=== PATIENT | male | born 1975 | race Caucasian/White ===

== ENCOUNTER 2021-12-07 07:43 | Outpatient (CLI) | payer OTHER, SELFPAY ==
[2021-12-07] MEDS: iohexol 350 mg/mL 100 mL Btl IV (08:31)
--- NOTE | 2021-12-07 09:00 | CT_ITS ---
WS: [id number] CT ABDOMEN AND PELVIS WITH CONTRAST HISTORY: R19.05 - Periumbilic swelling, mass or lump TECHNIQUE: Imaging performed of the abdomen and pelvis with IV contrast. Single phase imaging of the abdomen. Coronal and sagittal reformats are submitted. All CT scans at [facility] use at [address] one of these dose optimization techniques: automated exposure control; mA and/or kV adjustment per patient size (includes targeted exams where dose is matched to clinical indication); or iterative re construction. IV CONTRAST: Omnipaque 350; 95 mL IV. Oral contrast: No DLP: 1269.65 mGy.cm COMPARISON: None available. Lower thorax: 2 mm micronodule at the LEFT lung base. Normal size heart. Small hiatal hernia. Liver/biliary system: Normal size with no intrahepatic dilatation. Fatty infiltration along the falci form ligament. Normal portal vein. Gallbladder: Normal. No gallstones or wall thickening. No pericholecystic fluid. Pancreas: Normal size pancreas and pancreatic duct. No adjacent inflammation. Spleen: Normal size spleen. No mass or infarct. Adrenal glands: Normal. Right kidney: Normal. Left kidney: Normal size kidney. Low-attenuation mass from the upper pole measures 9 x 15 mm. Hounsfi eld units are slightly elevated. Aorta: Normal. Lymphadenopathy: None. Free fluid: None. GI tract: Normal appendix. Normal stomach. No small bowel obstruction. Negative colon. Abdominal wall: Very small umbilical hernia contains fat only. Pelvis: Mildly distended urinary bladder. Prostate gland minimally encroaches into the bladder. Ingui nal canals bilaterally containing fat, RIGHT greater than LEFT. LEFT inguinal canal is not definitely patent and may have been previously repaired. Bones: Unremarkable. CT/CT abdomen pelvis w con* [id number] IMPRESSION: 1. Very small fat-containing umbilical hernia. 2. Normal appendix. 3. Bilateral inguinal canals contain fat, RIGHT greater than LEFT. LEFT inguin al hernia may been previously repaired. 4. Superior pole, 9 x 15 mm, LEFT renal low-attenuation mass. 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 Recommend follow-up renal ultrasound.
== END 2021-12-07 07:44 | disposition home or self-care (01) ==
LOC: RAD 07:45
PROVIDERS: Visit Provider Surgery
DX: R19.05 Periumbilic swelling, mass or lump (principal); K42.9 Umbilical hernia without obstruction or gangrene; N28.89 Other specified disorders of kidney and ureter
CPT/HCPCS: 74177

== ENCOUNTER → 2021-12-25 13:19 | Outpatient (BNVA) | payer OTHER, SELFPAY | PROVIDERS: Visit Provider Surgery | DX: Z09 Encounter for follow-up examination after completed treatment for conditions other than malignant neoplasm (principal); D13.5 Benign neoplasm of extrahepatic bile ducts; R22.2 Localized swelling, mass and lump, trunk | CPT/HCPCS: 99213 ==

== ENCOUNTER 2022-02-21 06:09 | Outpatient (CLI) | payer OTHER, SELFPAY ==
--- NOTE | 2022-02-21 06:15 | US_ITS ---
WS: [id number] Complete ABDOMINAL ULTRASOUND HISTORY: abdominal/gallbladder/kidney pain COMPARISON: CT 12/07/2021 Liver: 17.5 cm in length. Mildly enlarged liver with mild coarsened echotexture. No mass or bile duct dilatation. Portal Vein: Normal hepatopetal flow with monophasic waveform. Gallbladder: Gallbladder is normally distended. Focal nodular thickening of the gallbladder wall may be small polyps. There is color Doppler which may indicate ring down artifact from adenomyomatosis. N o definite stones are identified. The largest gallbladder wall focal thickening measures 7 x 5 x 6 mm . Gallbladder wall thickness: 0.1 cm. Pancreas: Normal size and echogenicity. CBD: 0.4 cm. Right kidney: 10.8 cm x 4.7 cm x 4.1 cm. No mass, cortical thickening or hydronephrosis. Left kidney: 10.5 cm x 4.3 cm x 4.6 cm. Normal size kidney. Kidney is difficult to visualize in its entirety due to body habitus. There is a cyst from the upper pole measuring 10 x 12 x 13 mm. This cor responds to the abnormality seen on the recent CT. This does appear to be a cyst. Spleen: Normal size and echogenicity. Abdominal aorta and IVC are within normal limits. No ascites. US/US abdomen complete* [id number] IMPRESSION: 1. Focal gallbladder wall thickening with no stones. Suspect adenomyomatosis. Consider evaluation by surgery for possible gallbladder removal due to the soft tissue nodules. 2. Previously described complex cyst upper pole LEFT kidney is identified by u ltrasound. This does appear to be a simple cyst measuring 10 x 12 x 13 mm. 3. No renal obstruction.
== END 2022-02-21 06:10 | disposition home or self-care (01) ==
LOC: RAD 06:09
PROVIDERS: PCP Family Medicine; Visit Provider Surgery
DX: D13.5 Benign neoplasm of extrahepatic bile ducts (principal); N28.89 Other specified disorders of kidney and ureter; N28.1 Cyst of kidney, acquired
CPT/HCPCS: 76700

== ENCOUNTER → 2022-03-05 10:44 | Outpatient (BNVA) | payer OTHER, SELFPAY | PROVIDERS: PCP Family Medicine; Visit Provider Surgery | DX: D13.5 Benign neoplasm of extrahepatic bile ducts (principal); K76.0 Fatty (change of) liver, not elsewhere classified | CPT/HCPCS: 99212 ==

== ENCOUNTER 2022-04-02 06:45 | Emergency (ER) | payer OTHER, SELFPAY ==
[2022-04-02 06:59] VITALS: BP 146/96; PULSE 110; TEMP 37.4; O2SAT 98; BMI 27.8
[2022-04-02 07:47] LABS: Basophils % 0.2 %; Hematocrit 48.5 % (42.0-52.0); Lymphocytes # 0.6 10^3/uL (0.8-4.8); Mean Corpuscular Hemoglobin 27.7 pg (28.0-34.0); Mean Corpuscular Volume 84.1 fl (80-94); Mean Platelet Volume 9.4 fL (7.4-10.4); Monocytes # 0.9 10^3/uL (0.2-0.9); Monocytes % 9.3 %; Neutrophils # 7.82 10^3/uL (1.8-7.7); Neutrophils % 84.2 %; Nucleated Red Blood Cells % 0 %; Platelet Count 246 10^3/cmm (130-400); Red Blood Count 5.77 10^6/uL (4.1-5.3); Red Cell Distribution Width 12.8 % (12.1-15.1); White Blood Count 9.3 10^3/uL (4.0-10.0)
--- NOTE | 2022-04-02 07:52 | ED_ITS ---
HPI - Abdominal Pain General: Chief Complaint: Abdominal Pain Stated Complaint: abd pain Time Seen by Provider: 04/02/22 06:48 Source: patient Mode of arrival: ambulatory History of Present Illness: 46-year-old male presents emergency room with periumbilical right lower quadrant pain. He is scheduled to have his gallbladder removed next month he start having severe pain periumbilical yesterday its migrated down into the right lower quadrant did have a bowel movement this morning. Had some nausea and vomiting yesterday as well no hematuria hematemesis no coffee-ground emesis no dysuria urgency or frequency. Abdominal ultrasound done 1011 showed thickening of the gallbladder wall. No stones. MD elicited complaint: abdominal pain Pertinent past history: other (Abnormal gallbladder on ultrasound adenomyomatosis) Onset (ago): hour(s) Pain Consistency: constant Location: Periumbilical Severity: moderate Quality: sharp Migration to: RLQ Exacerbating factors: movement and other (Palpation of McBurney's point) Relieving factors: rest Associated Symptoms: Reports bloating, GI cramping, nausea and poor appetite; Denies anorexia, belching, change in bowel habits, change in stool character, chills, coffee ground emesis, constipation, diarrhea, dyspepsia, dysuria, excessive flatus, fever(s), heartburn, hematochezia, hematuria, hematemesis, fecal incontinence, loose stools, melena, syncope and vomiting Review of Systems Const: Denies: fever(s), chills, fatigue or malaise ENMT: Denies: throat pain, ear or mastoid pain, nasal discharge or nasal congestion Card: Denies: syncope Resp: Denies: dyspnea, productive cough or non-productive cough GI: Reports: nausea, bloating and GI cramping; Denies: vomiting, hematemesis, coffee ground emesis, heartburn, diarrhea, constipation, belching, excessive flatus, fecal incontinence, change in bowel habits, change in stool character, hematochezia or melena : Denies: dysuria or hematuria Skin/Breast: Denies: rash or pruritus PFSH ED PFSH: Medical History Abdominal wall mass Social History Smoking and tobacco status: never smoked Second hand smoke exposure: No Alcohol intake: never Desire information about alcohol rehabilitation?: No Physical Exam Const: GENERAL APPEARANCE: cooperative and comfortable ORIENTATION/CONSCIOUSNESS: Yes awake, Yes oriented to person, Yes oriented to place and Yes oriented to time HENMT: COMMON NORMALS: normocephalic, atraumatic and hearing grossly normal bilaterally HEAD & SCALP: normocephalic and atraumatic Resp: COMMON NORMALS: normal respiratory effort, No retractions, No use of accessory muscles and clear to auscultation bilaterally AUSCULTATION: clear to auscultation bilaterally Cardio: COMMON NORMALS: regular rate, regular rhythm and No murmurs present (Cardio) RATE: regular rate RHYTHM: regular rhythm GI: COMMON NORMALS: No hepatosplenomegaly present AUSCULTATION: Yes normoactive bowel sounds PALPATION: Yes Tenderness to palpation present (GI) (Right lower quadrant to lesser extent right upper quadrant no peritoneal si), No Guarding due to palpation present (GI) and Yes No hepatosplenomegaly present Extremity: COMMON NORMALS: normal to inspection, capillary refill normal, no clubbing, cyanosis or edema, no calf tenderness and no pedal edema Neuro: SENSORIUM/ORIENTATION: Yes oriented to person, Yes oriented to place and Yes oriented to time Skin: COMMON NORMALS: no rashes or lesions noted GENERAL SKIN EXAM: no rashes or lesions noted Course Vital Signs: Vital signs: Vital Signs Temperature 99.3 F 04/02/22 06:59 Pulse Rate 102 H 04/02/22 09:18 Respiratory Rate 16 04/02/22 09:18 Blood Pressure 132/76 04/02/22 09:18 Pulse Oximetry 97 04/02/22 09:18 Oxygen Delivery Me thod 04/02/22 06:59 MDM - Abdominal Pain Medical Decision Making Labs imaging reviewed. Labs normal white counts normal is no sign of acute appendicitis or exacerbation of his gallbladder on labs or imaging. Will discharge patient home I think some of this is biliary colic bland diet contact surgery to see if there is a potential to move up his cholecystectomy date Medical Records I reviewed the patient's medical records. Lab Data I reviewed the patient's lab results. 04/02/22 07:38 04/02/22 07:38 Labs/Radiology: Radiology Impressions Abdomen/Pelvis CT 04/02/22 07:56 IMPRESSION: 1. Normal appendix. No acute inflammatory changes in the RIGHT lower quadrant. 2. No renal calcification or obstruction. 3. No inflammatory changes around the gallbladder. Laboratory Results WBC 9.3 10^3/uL (4.0-10.0) 04/02/22 07:38 RBC 5.77 10^6/uL (4.1-5.3) H 04/02/22 07:38 Hgb 16.0 g/dL (11.7-16.6) 04/02/22 07:38 Hct 48.5 % (42.0-52.0) 04/02/22 07:38 MCV 84.1 fl (80-94) 04/02/22 07:38 MCH 27.7 pg (28.0-34.0) L 04/02/22 07:38 MCHC 33.0 g/dL (30.0-36.0) 04/02/22 07:38 RDW 12.8 % (12.1-15.1) 04/02/22 07:38 Plt Count 246 10^3/cmm (130-400) 04/02/22 07:38 MPV 9.4 fL (7.4-10.4) 04/02/22 07:38 Neut % (Auto) 84.2 % 04/02/22 07:38 Lymph % (Auto) 6.0 % 04/02/22 07:38 Wheeler % (Auto) 9.3 % 04/02/22 07:38 Eos % (Auto) 0.0 % 04/02/22 07:38 Baso % (Auto) 0.2 % 04/02/22 07:38 Neut # (Auto) 7.82 10^3/uL (1.8-7.7) H 04/02/22 07:38 Lymph # (Auto) 0.6 10^3/uL (0.8-4.8) L 04/02/22 07:38 Wheeler # (Auto) 0.9 10^3/uL (0.2-0.9) 04/02/22 07:38 Eos # (Auto) 0.0 10^3/uL (0.0-0.8) 04/02/22 07:38 Baso # (Auto) 0.0 10^3/uL (0.0-0.1) 04/02/22 07:38 Nucleated RBC % (auto) 0 % 04/02/22 07:38 Nucleated RBCs # 0.0 /100WBC 04/02/22 07:38 Sodium 137 mmol/L (136-145) 04/02/22 07:38 Potassium 3.8 mmol/L (3.5-5.1) 04/02/22 07:38 Chloride 99 mmol/L (98-107) 04/02/22 07:38 Carbon Dioxide 25 mmol/L (22-29) 04/02/22 07:38 Anion Gap 16.8 (5-19) 04/02/22 07:38 BUN 14 mg/dL (6-20) 04/02/22 07:38 Creatinine 0.9 mg/dL (0.7-1.2) 04/02/22 07:38 GFR Calculation 90.4 mL/min (90-130) 04/02/22 07:38 Glucose 104 mg/dL (65-115) 04/02/22 07:38 Calculated Osmolality 285 mOsm/kg (285-295) 04/02/22 07:38 Calcium 9.5 mg/dL (8.5-10.5) 04/02/22 07:38 Total Bilirubin 0.6 mg/dL (0.15-1.2) 04/02/22 07:38 AST 16 U/L (0-40) 04/02/22 07:38 ALT 24 U/L (0-41) 04/02/22 07:38 Alkaline Phosphatase 94 U/L (40-130) 04/02/22 07:38 Total Protein 7.5 g/dL (6.6-8.7) 04/02/22 07:38 Albumin 4.3 g/dL (3.5-5.2) 04/02/22 07:38 Globulin 3.2 g/dL (1.3-4.6) 04/02/22 07:38 Lipase 26 U/L (13-60) 04/02/22 07:38 Urine Color Yellow (Yellow) 04/02/22 08:20 Urine Appearance Clear (CLEAR) 04/02/22 08:20 Urine pH 5 (5-7) 04/02/22 08:20 Ur Specific Junction 1.025 (1.005-1.030) 04/02/22 08:20 Urine Protein Trace (Negative) 04/02/22 08:20 Urine Glucose (UA) Norm (Normal) 04/02/22 08:20 Urine Ketones 1+ (Negative) H 04/02/22 08:20 Urine Blood Neg (Negative) 04/02/22 08:20 Urine Nitrate Negative (Negative) 04/02/22 08:20 Urine Bilirubin 1+ (Negative) H 04/02/22 08:20 Urine Urobilinogen Norm mg/dL (Negative) 04/02/22 08:20 Ur Leukocyte Esterase Negative (Negative) 04/02/22 08:20 Urine RBC None /hpf (0-2) 04/02/22 08:20 Urine WBC None /hpf (0-5) 04/02/22 08:20 Ur Squamous Epith Cells None /hpf (0-5) 04/02/22 08:20 Amorphous Sediment Not Reportable 04/02/22 08:20 Urine Bacteria None /hpf (NONE) 04/02/22 08:20 Discharge Plan Discharge Patient Disposition: Home Clinical Impression: Biliary colic Condition: Stable Prescriptions: New hydrocodone-acetaminophen 5-325 mg tablet 1 tab PO Q6H PRN (Reason: pain) Qty: 20 0RF promethazine 25 mg tablet 25 mg PO Q6H PRN (Reason: nausea and vomiting) Qty: 20 0RF No Action pravastatin [Pravachol] 20 mg tablet 20 mg PO DAILY sulfamethoxazole-trimethoprim [Bactrim DS] 800-160 mg tablet 1 tab PO Q12H Qty: 20 0RF mupirocin 2 % ointment 1 applic topical BID 7 Days Qty: 15 0RF Discharge Orders: Discharge ED (Routine); Ordered 04/02/22 Ordered By: Greyson Lambert Referrals: Mary Queen MD [Primary Care Provider] - Discharge Diet: As Directed Discharge Activity: Increase activity as tolerated Patient Instructions: Biliary Colic (ED), Opioid Safety, Pain Management Activity Restrictions/Additional Instructions: Amonate diet. Avoid any fatty foods fried foods tomato based products or meats. Follow-up with surgery. Contact them with them know you are having worsening problems to see if there is a potential for them to move up the day of your surgery. Coding Level of Care Code ED Gunsmith Apprentice for Marisabel Mcfarlane
--- NOTE | 2022-04-02 07:56 | CT_ITS ---
WS: [id number] CT ABDOMEN AND PELVIS NONCONTRAST HISTORY: Abdominal pain, RIGHT lower quadrant pain with nausea. TECHNIQUE: Imaging performed through the abdomen and pelvis. Coronal and sagittal reformats are submi tted. All CT scans at [facility] use at least one of these dose optimization techniques: auto mated exposure control; mA and/or kV adjustment per patient size (includes targeted exams where dose is matched to clinical indication); or iterative reconstruction. DLP: 746.46 mGy.cm COMPARISON: 12/07/2021 Lower thorax: New subsegmental atelectasis LEFT lower lobe. Liver: Mild low attenuation. No bile duct dilatation or mass on this unenhanced exam. Gallbladder: By CT unremarkable. Pancreas: Normal size and attenuation. Normal pancreatic duct. No pancreatitis or mass. Spleen: Normal. Adrenal glands: Normal. No mass. Right kidney: Normal size kidney with no mass or hydronephrosis. Left kidney: Normal size kidney. Low-attenuation mass from the lateral kidney measures 12 x 18 mm. Sl ightly increased in size since the prior study and thought to be a cyst. Aorta: Normal abdominal aorta, no aneurysm or atherosclerosis. No free fluid, intraperitoneal air or significant lymphadenopathy. GI tract: Normal appendix. No GI tract obstruction or diverticulosis. Abdominal wall: Small umbilical hernia contains fat only. Pelvis: Normal. Bilateral inguinal hernias containing fat only. Osseous structures: Unremarkable. CT/CT abdomen pelvis wo con [id number] IMPRESSION: 1. Normal appendix. No acute inflammatory changes in the RIGHT lower quadrant. 2. No renal calcification or obstruction. 3. No inflammatory changes around the gallbladder.
[2022-04-02] MEDS: ondansetron 2 mg/ML SDV 2 mL 4 MG IVP (08:00)
[2022-04-02 08:06] LABS: Alanine Aminotransferase 24 U/L (0-41); Albumin Level 4.3 g/dL (3.5-5.2); Alkaline Phosphatase 94 U/L (40-130); Anion Gap 16.8 (5-19); Aspartate Amino Transferase 16 U/L (0-40); Blood Urea Nitrogen 14 mg/dL (6-20); Calcium 9.5 mg/dL (8.5-10.5); Carbon Dioxide 25 mmol/L (22-29); Chloride 99 mmol/L (98-107); Globulin 3.2 g/dL (1.3-4.6); Glomerular Filtration Rate 90.4 mL/min (90-130); Glucose 104 mg/dL (65-115); Lipase 26 U/L (13-60); Osmolality Calculated 285 mOsm/kg (285-295); Potassium 3.8 mmol/L (3.5-5.1); Sodium 137 mmol/L (136-145); Total Bilirubin 0.6 mg/dL (0.15-1.2); Total Protein 7.5 g/dL (6.6-8.7)
[2022-04-02 08:46] LABS: Add Urine Microscopic? YES; Bilirubin Urine 1+ (Negative); Blood Urine Neg (Negative); Glucose Urine UA Norm (Normal); Ketones Urine 1+ (Negative); Leukocyte Esterase Urine Negative (Negative); Nitrate Urine Negative (Negative); Protein Urine Trace (Negative); Specific Gravity, Urine 1.025 (1.005-1.030); Urine Appearance Clear (CLEAR); Urine Color Yellow (Yellow); Urobilinogen Urine Norm (Negative); pH Urine 5 (5-7)
[2022-04-02 08:47] LABS: Add Urine Culture? No
[2022-04-02 09:18] VITALS: BP 132/76; PULSE 102; RESP 16; O2SAT 97
== END 2022-04-02 09:20 | disposition home or self-care (01) ==
PROVIDERS: Emergency Provider Family Medicine; PCP Family Medicine
DX: K80.50 Calculus of bile duct without cholangitis or cholecystitis without obstruction (principal)
CPT/HCPCS: 74176; 80053; 81001; 83690; 85025; 96374; 99285; J2405

== ENCOUNTER 2022-05-01 05:39 | Day surgery (SDC) | payer OTHER, SELFPAY ==
[2022-04-30 11:13] VITALS: BMI 27.1
[2022-05-01] VITALS (15 sets, daily range): BP systolic 99–155; BP diastolic 63–99; PULSE 44–61; RESP 12–22; TEMP 36.1–36.6; O2SAT 95–100
--- NOTE | 2022-05-01 06:13 | P.HP_ITS ---
Same Day Surgery H&P Indication for Procedure/HPI DATE OF PROCEDURE: May 01, 2022 CHIEF COMPLAINT/INDICATIONFOR SURGICAL PROCEDURE: Gallbladder issues PREOP DIAGNOSIS: Adenomyomatosis of the gallbladder PLANNED PROCEDURE: Operation Date: 05/01/22 07:00 Proposed Procedures p Laparoscopic Cholecystectomy 82828,D13.5(Not Applicable) - Jerman Gonzalez MD Chief Complaint: I am here for gallbladder surgery History of present illness: 07/24/2021 This is a pleasant 45 years old gentleman has been complaining for few years of a tender right sided periumbilical mass.? Nothing seems to make it worse but it gets better when he applies ice packs.? Patient had blood work outside facility that showed normal liver function tests and an ultrasound that showed gallbladder concerning for adenomyomatosis and a CBD of 2 mm in diameter.? Patient never had a CT scan of the abdomen and pelvis and he is concerned about the periumbilical indurated and tender spot.? Denies any nausea or vomiting at this point or fatty dyspepsia.? No evidence of bowel obstruction. His updated on EGD and colonoscopy were done at the same time and were within normal limits per his descripion 12/25/2021 Patient comes today after a CT of the abdomen pelvis was done and showed; 1.? Very small fat-containing umbilical hernia. 2.? Normal appendix. 3.? Bilateral inguinal canals contain fat, RIGHT greater than LEFT. LEFT inguinal hernia may been previously repaired. 4.? Superior pole, 9 x 15 mm, LEFT renal low-attenuation mass. Complex cyst versus very early renal cell neoplasm. Recommend follow-up renal ultrasound. ? ? Patient undergone a sonography back in May 26, 2021 and there was a concern about sonographic evaluation demonstrating gallbladder mucosal irregularities, raising the question of adenomyomatosis.? There are no obvious stones or evidence of active inflammation.? There is no hepatic mass or evidence of intrahepatic biliary distention.? The common bile duct is normal in caliber at approximately 2 mm. Interim history 03/05/2022 Patient has a follow-up today via telehealth status post repeat ultrasound that did not show 1.? Focal gallbladder wall thickening with no stones. Suspect adenomyomatosis. Consider evaluation by surgery for possible gallbladder removal due to the soft tissue nodules. 2.??Previously described complex cyst upper pole LEFT kidney is identified by ultrasound. This does appear to be a simple cyst measuring 10 x 12 x 13 mm. 3.? No renal obstruction. Blood work from outside facility showing a alkaline phosphatase 90, albumin 4.3, direct bilirubin 0.3 AST 21, ALT 26 and total bilirubin 1.0. Patient has been reporting right-sided abdominal pain for few years on and off.? Being dull in nature, does not radiate.? Reports some bouts of diarrhea.? Nothing seems to make it better or worse. 05/01/2022 Patient comes today for elective laparoscopic cholecystectomy. Recent CT of the pelvis was done and showed 1.? Normal appendix. No acute inflammatory changes in the RIGHT lower quadrant. 2.? No renal calcification or obstruction. 3.? No inflammatory changes around the gallbladder. ? Lab values are reviewed and are appropriate. Patient has been on liquid protein diet and his known to 193 pounds from 210 ROS All systems have been reviewed negative except as for the above or per problem list. Medications/Allergies* Home Medications Medication Instructions Recorded Confirmed Type pravastatin 20 mg tablet 20 mg PO DAILY 08/25/20 05/01/22 History (Pravachol) Allergies/Adverse Reactions Allergy/AdvReac Type Severity Reaction Status Date / Time aspirin Allergy ADR-Vomitin Verified 05/01/22 06:14 g Pertinent History/Comorbid Conditions* Medical History (Updated 04/10/22 @ 00:00 by ) Abdominal wall mass Social History Smoking and tobacco status: never smoked Second hand smoke exposure: No Alcohol intake: never Desire information about alcohol rehabilitation?: No Pertinent Exam Findings alert, oriented x 3, clear to auscultation bilaterally, regular rate & rhythm and procedure specific exam findings (Abdominal exam nontender nondistended soft) Recommendations Surgery/Procedure today (Laparoscopic cholecystectomy possible open) Other Plans: Plan of care; After thorough history physical examination and reviewing the chart and images with my personal intrepreatation.I counseled the patient for laparoscopic cholecystectomy possible open, indications risks including but not limited injury to the common bile duct and/or other viscera,that may require potential future surgical interventions including but not limited to ERCP and or laparatomy that may include Hepatobiliary surgery.Benefits and alternatives all discussed with the patient, and patient did agree to proceed accordingly. All questions have been answered and all concerns have been addressed to patient's satisfaction. Rationale was carefully and clearly discussed with the patient.Appropriate informed consent have been reviewed and signed. Coding Level of Care Code Acute Senior Compensation Analyst for Marisabel Mcfarlane
[2022-05-01] MEDS: heparin 5,000 unit/mL INJ 1 mL 2000 UNIT SUBCUT (06:28)
[2022-05-01] MEDS: sodium chloride 0.9% 1,000 ML 30 ML IV (06:28)
[2022-05-01] MEDS: acetaminophen 1,000 MG/100 ML PIGGYBACK 400 MG IV (06:28)
[2022-05-01] MEDS: ampicillin-sulbactam 3 GM in sodium chloride 0.9% (plus) 50 ML IV (07:00)
[2022-05-01] MEDS: lidocaine 2% INJ 20 mL INJECTION (07:23)
--- NOTE | 2022-05-01 07:33 | ANES.PREANE2 ---
Pre-Anesthetic Assessment Height/Weight: Height 1.8 m Weight 87.543 kg Temp Pulse Resp BP Pulse Ox O2 Del Method 97.9 F 57 L 18 113/65 100 05/01/22 06:04 05/01/22 06:04 05/01/22 06:04 05/01/22 06:04 05/01/22 06:04 05/01/22 06:04 Preop Diagnosis: Adenomyomatosis of the gallbladder Operation Date: 05/01/22 07:00 Proposed Procedures p Laparoscopic Cholecystectomy 39867,D13.5(Not Applicable) - Jerman Gonzalez MD Familial anesthetic complications: none Was Beta Brenton taken within 24 hours: N/A Was Clonidine taken within 24 hours: N/A Last intake: Intake Last Liquid Date 04/30/22 Last Liquid Time 20:00 Last Solid Date 04/23/22 Last Solid Time 12:00 Social No alcohol and No tobacco Exam alert, oriented x 3, clear to auscultation bilaterally and regular rate & rhythm Airway Submandibular: within normal limits Cervical ROM: within normal limits Mallampati: Class II Dentition: full Metabolic Hyperlipidemia Anesthetic Plan ASA status: 2 Anesthesia: General Medications/Allergies Home Medications Medication Instructions Recorded Confirmed Last Taken Type pravastatin 20 mg tablet 20 mg PO DAILY 08/25/20 05/01/22 04/29/22 History (Pravachol) Allergies Allergy/AdvReac Type Severity Reaction Status Date / Time aspirin Allergy ADR-Vomitin Verified 05/01/22 06:14 g Current Medications Generic Name Dose Route Start Last Admin Trade Name Freq PRN Reason Stop Dose Admin Sodium Chloride 1,000 mls @ 30 mls/hr 05/01/22 06:00 05/01/22 06:28 Sodium Chloride 0.9% IV 05/02/22 05:59 30 mls/hr .Q24H DARREL Administration PFSH Anesthesia Medical History Abdominal wall mass Social History Smoking and tobacco status: never smoked Second hand smoke exposure: No Alcohol intake: never Desire information about alcohol rehabilitation?: No Data Anesthesia Cardiac Studies: No Data to Display
--- NOTE | 2022-05-01 07:59 | PM.OP ---
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 Time-out was done verifying the patient's name/date of /planned procedure and destination after the procedure, all were in agreement. SCDs confirmed to be functioning, preoperative antibiotics administered per protocol, and beta osbaldo protocol was confirmed. Patient was appropriately secured to the table, footboard was applied to the OR table, before prep and drape anesthesia was asked to tilt the table back and forth to make sure that the patient is appropriately secured and she was. Prep and drape of the abdomen was done under the usual sterile technique, followed by that umbilical skin incision,skin incision was done by a 15 blade knife, and stay sutures were applied to the fascia and Lozada trocar technique was used to enter the abdominal without injuring any abdominal viscera, started by low flow gas insufflation followed by a high flow, started with a 10 mm laparoscope and under direct vision there was no evidence of any injuries, the scope then switched to a 30? ,10 millimeter scope and under direct visualization 5 millimeter trocar was inserted in the epigastric region followed by two 5 mm trocars were inserted in the right upper quadrant that was done after injection of local lidocaine 2% at all incision sites. Gallbladder showed chronic cholecystitis and Fatty Liver, noticed omental adhesions. Patient was then positioned in the head up and tilted to the left. Ratcheted forceps were introduced into the lateral most 5mm port and was applied unto the fundus of the gallbladder cephalad and using Bullet forceps the infundibulum of the gallbladder was retracted laterally. Using [place] forceps then L-hook cautery to dissect the peritoneum and all the omental adhesions were taken down overlying the Calot's triangle which was then opened medially and laterally until the cystic duct and the cystic artery were skeletonized. Dissection was carried along the body of the gallbladder and after ensuring critical view of safety was identfied. Cystic duct and cystic artery where seen connected to the gallbladder. Clips were applied on the cystic duct towards the common bile duct 1 towards the gallbladder then divided is in sharp scissors, 2 clips were then applied onto the cystic artery and 1 towards the gallbladder and divided by sharp scissors. Additional vessels were clipped and divided. Dissection was then carried along of the gallbladder from the gallbladder fossa using cautery as well as sharp dissection with heat energy. The gallbladder then was dissected out from the gallbladder fossa totally , cholecystectomy was then achieved and was placed in an Endo Catch bag and then retrieved from the Lozada trocar site under direct visualization using a 5 mm 30? scope through the epigastric trocar, specimen was then passed to the circulating nurse to go for permanent pathology,irrigation and hemostasis was done to the gallbladder fossa after hemostasis was secured, final survey laparoscopy was done that showed no injuries. Suction irrigation was obtained The umbilical fascial defect was then closed using interrupted number one PDS sutures using a fascial closure device ;Dennis Lozoya under direct visualization following that Gas was allowed to deflate,Trocars were then taken out under direct vision there was no evidence of bleeding. Specimen was passed to the circulating nurse for permanent pathology. No drains were placed and the umbilical incision as well as all trocar sites were closed by 3/0 Vicryl followed by 4-0 Monocryl to approximate the skin edges of the incisions , dressing was applied in the form of Surgical glue and the patient patient got extubated and was taken to recovery area in a stable condition. Count of sponges,needles and instruments were completed at the end of the procedure I was present for the whole entire procedure.
--- NOTE | 2022-05-01 08:21 | PC.NURSE ---
patient awake. oral airway out
[2022-05-01] MEDS: fentaNYL 50 mcg/mL INJ 2mL IVP (08:24)
[2022-05-01] MEDS: HYDROcodone-acetaminophen 5-325 mg Tablet 1 TAB PO (09:35)
[2022-05-01] MEDS: HYDROmorphone 1 mg/mL INJ 1 mL 0.5 MG IVP ×2 (09:40→10:30)
--- NOTE | 2022-05-01 14:43 | ANE.PACU2 ---
Inpatient post-anesthesia follow up: Airway intact: Yes Vital signs: Temperature 97.2 F Pulse Rate 48 Respiratory Rate 18 Blood Pressure 105/63 Pulse Oximetry 96 Oxygen Delivery Me thod Room Air Oxygen Flow Rate 8 Fraction of Inspir ed Oxygen Hydration adequate: Yes Nausea and vomiting: No Pain level: 3 Mental status: Baseline
== END 2022-05-01 11:10 | disposition home or self-care (01) ==
PROVIDERS: PCP Family Medicine; Visit Provider Surgery
PROC: 0FT44ZZ Resection of Gallbladder, Percutaneous Endoscopic Approach (ICD-10-PCS; CPT 47562; principal; 2022-05-01 07:00)
DX: K80.10 Calculus of gallbladder with chronic cholecystitis without obstruction (principal); E78.5 Hyperlipidemia, unspecified; K76.0 Fatty (change of) liver, not elsewhere classified; K42.9 Umbilical hernia without obstruction or gangrene
CPT/HCPCS: 47562; 88304; J0131; J0295; J1100; J1170; J1644; J2250; J2405; J2704; J2710; J3010; J3490; J7030

== ENCOUNTER → 2022-05-08 10:29 | Outpatient (BNVA) | payer OTHER, SELFPAY | PROVIDERS: PCP Family Medicine; Visit Provider Surgery | DX: Z09 Encounter for follow-up examination after completed treatment for conditions other than malignant neoplasm (principal); K76.0 Fatty (change of) liver, not elsewhere classified | CPT/HCPCS: 99024 ==

== ENCOUNTER → 2022-06-19 09:09 | Outpatient (BNVA) | payer OTHER, SELFPAY | PROVIDERS: PCP Family Medicine; Visit Provider Surgery | DX: Z98.890 Other specified postprocedural states (principal); Z90.49 Acquired absence of other specified parts of digestive tract | CPT/HCPCS: 99024; 99212 ==